=== PATIENT | male | born 1955 | race Caucasian/White ===

== ENCOUNTER → 2017-06-08 | Outpatient (CLI) | payer OTHER ==
[~2017-06-08] MED LIST: A/B OTIC; ACE500 PO; ALBUDR INH; ALLERGY INJECTION INJ; ALLERGY INJECTIONS INJ; ASP325 PO; AUGMENTIN; CET10 PO; IBU600 PO; PREDNISONE; [UNRECOGNIZED DRUG - MIXTURE]
--- NOTE | 2017-06-08 17:36 | RADIOLOGY IMAGING REPORT ---
FACILITY: [facility] [place] PATIENT NAME: Sky Mora : 1955 MR: [id number] V: [id number] EXAM DATE: ORDERING PHYSICIAN: SANDI QUINTEROS TECHNOLOGIST: Location: [facility] Patient: Sky Mora : 1955 Visit/Account:[id number] Date of Sevice: 06/08/2017 MRI cervical spine Indication: Arm numbness Comparison: MRI of the cervical spine from 06/29/2014 Technique: Sagittal T1-weighted, T2-weighted, STIR,, axial T2 weighted and gradient echo images were obtained through the cervical spine. Findings: Limited views of the posterior fossa are unremarkable. There is no abnormal signal within the visualized spinal cord. There is disc desiccation at C2-C3 as well as mild disc space during and disc desiccation at C5-6 and C6-C7. Is minimal disc desiccation at T1-2 also noted. C2-C3: No significant central stenosis or neuralforaminal narrowing.. C3-C4: Moderate bilateral facet arthropathy worse in the left than the right as well as a mild diffus e disc osteophyte bulge and uncovertebral degenerative changes causes overall mild central stenosis. There is mild right-sided and persistent severe left-sided neural foraminal narrowing also seen.. C4-C5: Mild diffuse disc osteophyte bulge and facet arthropathy causes overall mild central stenosis. There is moderate left-sided and mild to moderate right-sided neural foraminal narrowing.. C5-C6: Mild diffuse disc osteophyte bulge eccentric to the right as well as right sided prominent unc overtebral degenerative changes and facet arthropathy causes persistent severe right-sided neural for aminal narrowing. There is overall minimal central stenosis and the left neural foramen is patent.. C6-C7: Mild diffuse disc osteophyte bulge and facet arthropathy causes overall minimal central stenos is. There is mild foraminal narrowing bilaterally.. C7-T1: No significant central stenosis or neuralforaminal narrowing.. IMPRESSION: 1. Degenerative changes cervical spine as above most significant at C5-C6 where there is persistent severe right-sided neural foraminal narrowing and at C3-C4 with there is persistent severe left-sided neural foraminal narrowing.. Report Dictated By: Lewis Chery MD at 06/08/2017 5:28 PM Report E-Signed By: Lewis Chery MD at 06/08/2017 5:33 PM WSN:[id number]
== END ==
LOC: MRI 00:48
PROVIDERS: ATTEND Chiropractor
DX: M50.322 Other cervical disc degeneration at C5-C6 level (principal); M48.02 Spinal stenosis, cervical region
CPT/HCPCS: 72141

== ENCOUNTER → 2017-12-05 | Outpatient (REF) | payer OTHER ==
[2017-12-05 11:52] LABS: PLATELET COUNT, AUTOMATED 134 K/uL (150-450)
== END ==
LOC: ZZSTITCHES 11:38
PROVIDERS: ATTEND Physician Assistant
DX: L29.9 Pruritus, unspecified (principal); R10.9 Unspecified abdominal pain
CPT/HCPCS: 82040; 82247; 82310; 82374; 82435; 82565; 82947; 84075; 84132; 84155; 84295; 84450; 84460; 84520; 85025

== ENCOUNTER → 2018-02-22 | Outpatient (REF) | payer OTHER | LOC: ZZSTITCHES 20:04 | PROVIDERS: ATTEND Physician Assistant | DX: R93.5 Abnormal findings on diagnostic imaging of other abdominal regions, including retroperitoneum (principal) | CPT/HCPCS: 82310; 82374; 82435; 82565; 82947; 84132; 84295; 84520 ==

== ENCOUNTER → 2018-02-24 | Outpatient (CLI) | payer OTHER ==
[~2018-02-24] MED LIST changes: +IOPAMIDOL 76% 75 ML INFUS BTL 75 ML ONE
--- NOTE | 2018-02-24 09:30 | RADIOLOGY IMAGING REPORT ---
FACILITY: [facility] [place] PATIENT NAME: Sky Mora : 1955 MR: [id number] V: [id number] EXAM DATE: ORDERING PHYSICIAN: LIONEL MENESES TECHNOLOGIST: Location: [facility] Patient: Sky Mora : 1955 Visit/Account:[id number] Date of Sevice: 02/24/2018 ABDOMEN/PELVIS WITH CONTRAST HISTORY: Right lower quadrant pain for several months. Nausea. Constipation. TECHNIQUE: CT abdomen and pelvis with intravenous contrast. One of the following dose optimization techniques was utilized in the performance of this exam: Autom ated exposure control; adjustment of the mA and/or kV according to the patient's size; or use of an i terative reconstruction technique. Specific details can be referenced in the facility's radiology C T exam operational policy. CONTRAST: 75 mL Isovue-370. COMPARISON: CT dated October 25, 2011. FINDINGS: Visualized lung bases: Subtle tree-in-bud type nodularity within the lung bases, left greater then r ight, stable to slightly progressed since prior CT from 2012. This likely represents a chronic small airways infectious process including fungal and atypical etiologies. Hepatobiliary: 3.8 cm cyst within the right hepatic lobe. Multiple additional smaller cysts and sub centimeter hypodensities within the liver which are too small to characterize however statistically r epresents simple cyst. Gallbladder surgically absent. Otherwise negative. Spleen: Prominent size measuring up to 14.7 cm in diameter, grossly unchanged. Otherwise negative. Adrenals: Negative. Pancreas: Negative. Kidneys/: Few subcentimeter hypodensities within the kidneys which are too small to characterize h owever statistically represents simple cysts. Prostate is mildly enlarged. Mild chronic appearing w all thickening and irregularity of the bladder, grossly unchanged. Otherwise negative. GI: Chronic appearing fat attenuation within the wall of the colon which is nonspecific however can be seen in the setting of remote chronic inflammation. No evidence for active inflammation identifie d. Appendix is unremarkable. 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 Borderline aneurysm of the left common iliac artery measuring up to 1.4 cm. Abdominal a mary is normal in caliber. Otherwise negative. Bones/soft tissues: Small fat-containing bilateral inguinal hernias. IMPRESSION: 1. No acute findings. No definitive CT explanation for the patient's right lower quadrant pain. 2. Chronic appearing fat attenuation within the wall the colon which is nonspecific however can be s een in the setting of chronic inflammation. No evidence for active infectious/inflammatory process a t this time. 3. Additional incidental/chronic findings, as above. Report Dictated By: Howie Swanson MD at 02/24/2018 8:37 AM Report E-Signed By: Howie Swanson MD at 02/24/2018 9:26 AM WSN:[email or web address]
== END ==
LOC: CT 01:07
PROVIDERS: ATTEND Physician Assistant
DX: K59.00 Constipation, unspecified (principal); R10.84 Generalized abdominal pain; R93.5 Abnormal findings on diagnostic imaging of other abdominal regions, including retroperitoneum
CPT/HCPCS: 74177; Q9967